=== PATIENT | female | born 2000 | race Caucasian/White ===

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

== ENCOUNTER 2018-11-05 22:15 | Emergency (ER) | payer OTHER ==
[2018-11-05 22:18] VITALS: BMI 25.7
[2018-11-06 00:21] LABS: EPI CELLS 0.4 /HPF (0-5/HPF); HYALINE CASTS 0 /lpf (0-8); PH,URINE 7.5 (5.0-8.0); URINE APPEARANCE CLEAR; URINE BACTERIA 245.6 /hpf (NEGATIVE); URINE BILIRUBIN NEGATIVE (NEGATIVE); URINE COLOR YELLOW; URINE GLUCOSE (UA) NEGATIVE (NEGATIVE); URINE KETONE NEGATIVE (NEGATIVE); URINE LEUK ESTERASE 3+ (NEGATIVE); URINE NITRITE NEGATIVE (NEGATIVE); URINE PROTEIN NEGATIVE (NEGATIVE); URINE RBC 4 /hpf (0-4); URINE WBC 42 /hpf (0-5)
[2018-11-06 00:50] LABS: HCG,QUALITATIVE URINE Negative
[2018-11-06] MEDS ORDERED: SODIUM CHLORIDE 0.9% 1000 ML INFUS.BAG IV ONE (01:08)
[2018-11-06] MEDS ORDERED: ACETAMINOPHEN 1000 MG/100 ML VIAL (NON FORMULARY) IVPB ONE (01:08)
--- NOTE | 2018-11-06 01:53 | PDOC ---
History of Present Illness - General Chief Complaint: Pain Stated Complaint: ABD/PAIN Time Seen by Provider: 11/05/18 23:49 History Source: Patient Exam Limitations: No Limitations - History of Present Illness Initial Comments: 11/06/18 01:48 18F with no PMH presents to the ER with complaints of abdominal pain. The patient states that she saw her PCP and had an ultrasound approximately 5 days ago which showed "a stomach cyst". She states that since she was diagnosed, she' s had lower abdominal pain. She admits to dysuria but denies vaginal discharge, fever, chills, nausea, vomiting, anorexia. She denies any other abdominal pain besides the burning pain when she urinates. Past History - Past Medical History Allergies/Adverse Reactions: Allergies Allergy/AdvReac Type Severity Reaction Status Date / Time No Known Allergies Allergy Verified 11/05/18 22:19 Home Medications: Ambulatory Orders Cephalexin Monohydrate [Keflex -] 500 mg PO BID #10 capsule 11/06/18 Methylprednisolone [Medrol Dose Chase] 4 mg PO ASDIR #21 tablet 11/06/18 COPD: No - Immunization History Immunization Up to Date: Yes - Suicide/Smoking/Psychosocial Hx Smoking History: Never smoked Have you smoked in the past 12 months: No Hx Alcohol Use: No Drug/Substance Use Hx: No Substance Use Type: None Review of Systems - Review of Systems Able to Perform ROS?: Yes Comments:: 11/06/18 01:51 GENERAL/CONSTITUTIONAL: No fever or chills. No weakness. HEAD, EYES, EARS, NOSE AND THROAT: No change in vision. No ear pain or discharge. No sore throat. CARDIOVASCULAR: No chest pain, palpitations, or lightheadedness. RESPIRATORY: No cough, wheezing, shortness of breath, or hemoptysis. GASTROINTESTINAL: + for lower abdominal pain. No nausea, vomiting, diarrhea, or constipation. GENITOURINARY: + for dysuria. No frequency, hematuria, or change in urination. MUSCULOSKELETAL: No joint or muscle swelling or pain. No neck or back pain. SKIN: No rash or lesions. NEUROLOGIC: No headache, numbness, tingling, focal weakness, loss of consciousness, or change in strength/sensation. Is the patient limited Wolof proficient: No *Physical Exam - Vital Signs Last Vital Signs Temp Pulse Resp BP Pulse Ox 98.2 F 70 18 133/82 100 11/05/18 22:17 11/05/18 22:17 11/05/18 22:17 11/05/18 22:17 11/05/18 22:17 - Physical Exam Comments: 11/06/18 01:52 GENERAL: Well developed, well nourished. Awake and alert. No acute distress. HEENT: Normocephalic, atraumatic. Hearing grossly normal. Moist mucous membranes. PERRLA, EOMI. No conjunctival pallor. Sclera are non-icteric. NECK: Supple. Full ROM. No JVD. CARDIOVASCULAR: Regular rate and rhythm. No murmurs, rubs, or gallops. PULMONARY: No evidence of respiratory distress. Lungs clear to auscultation bilaterally. No wheezing, rales or rhonchi. ABDOMINAL: Soft. TTP in suprapubic abdomen. Non-distended. No rebound or guarding. PELVIC: Normal external genitalia, no abnormal discharge, no CMT. Midline and R adnexal tenderness present. GENITOURINARY: No CVA tenderness bilaterally. MUSCULOSKELETAL: Normal range of motion at all joints. No bony deformities or tenderness. EXTREMITIES: No cyanosis. No clubbing. No edema. No calf tenderness or swelling. SKIN: Warm and dry. Normal capillary refill. No rashes. No jaundice. NEUROLOGICAL: Alert, awake, appropriate. Cranial nerves 2-12 grossly intact. Normal speech. Gait is normal without ataxia. PSYCHIATRIC: Cooperative. Good eye contact. Appropriate mood and affect. ED Treatment Course - LABORATORY CBC & Chemistry Diagram: 11/06/18 02:00 11/06/18 02:00 - ADDITIONAL ORDERS Additional order review: Laboratory Results 11/06/18 00:07 Urine Color Yellow Urine Appearance Clear Urine pH 7.5 Ur Specific [place] 1.007 L Urine Protein Negative Urine Glucose (UA) Negative Urine Ketones Negative Urine Blood 2+ H Urine Nitrite Negative Urine Bilirubin Negative Urine Urobilinogen 1.0 Ur Leukocyte Esterase 3+ H Urine WBC (Auto) 42 Urine RBC (Auto) 4 Urine Casts (Auto) 0 U Epithel Cells (Auto) 0.4 Urine Bacteria (Auto) 245.6 Urine HCG, Qual Negative - RADIOLOGY Radiology Studies Ordered: Category Date Time Status TRANSVAGINAL ULTRASOUND US [US] Stat Ultrasound 11/06/18 00:43 Taken Medical Decision Making - Medical Decision Making 11/06/18 01:53 18F with no PMH who presents with abdominal pain and complaints of a cyst. Pelvic exam notable for midline tenderness and R adnexal tenderness. US negative. UA shows UTI. Will send GC/Chlamydia swab from cervix. Pt well appearing otherwise. Will obtain labs and hydrate and reassess. 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 CBC shows WBC of 11. Will obtain CTAP to r/o appendicitis. 11/06/18 04:32 Pt states that she feels eye swelling after the CT. Mild periorbital edema noted w/o any wheezing or oropharynx involvement. Will give benadryl, pepcid, and steroids and move to monitored room. 11/06/18 04:49 CT IMPRESSION: Possible mild cystitis can be correlated with urinalysis. 1.4 cm involuting left ovarian cyst and small amount of pelvic free fluid. Will monitor patient for allergic reaction. 11/06/18 05:35 Swelling has resolved. Will d/c with abx and medrol dose pack and PCP f/u. *DC/Admit/Observation/Transfer Diagnosis at time of Disposition: Cystitis - Discharge Dispostion Disposition: HOME Condition at time of disposition: Stable Decision to Admit order: No - Prescriptions Prescriptions: Cephalexin Monohydrate [Keflex -] 500 mg PO BID #10 capsule Methylprednisolone [Medrol Dose Chase] 4 mg PO ASDIR #21 tablet - Referrals Referrals: Manisha Li [Primary Care Provider] - - Patient Instructions Printed Discharge Instructions: DI for General Allergic Reactions Additional Instructions: Your ER visit is not complete until your follow up with your primary care physician. Please follow up with your primary care physician in 1-2 days. Please return to the ER if you have any signs or symptoms of chest pain, shortness of breath, uncontrollable fever, chills, nausea, vomiting, numbness, tingling, or weakness in any part of your body, changes in vision, or slurred speech. Please take your medications as prescribed. Please return to the ER if symptoms persist, worsen, or new symptoms arise. - Post Discharge Activity
--- NOTE | 2018-11-06 02:03 | PDOC ---
Documentation entered by Waqar Haley SCRIBE, acting as scribe for Cordelia Paris DO. Cordelia Paris DO: This documentation has been prepared by the Sudha hamlin Elijah, SCRIBE, under my direction and personally reviewed by me in its entirety. I confirm that the documentation accurately reflects all work , treatment, procedures, and medical decision making performed by me. Attending Attestation - Resident Resident Name: Ramon Hutchinson - ED Attending Attestation I have performed the following: I have examined & evaluated the patient, The case was reviewed & discussed with the resident, I agree w/resident's findings & plan - HPI HPI: 11/06/18 01:52 Patient is a 18yo f with no reported significant PMH who presents to the ED with pelvic pain localized now localized to the right side. The patient also reports some dysuria. Denies Nausea, fever, vomiting and Vaginal Discharge Allergies: GRISEL PCP: Dr. Li 11/06/18 02:00 - Physicial Exam PE: 11/06/18 01:55 Agree with Resident's Exam - Medical Decision Making 11/06/18 02:01 18-year-old female with pelvic pain, right greater than left Urinalysis consistent with urinary tract infection Pelvic ultrasound shows no significant acute abnormalities Plan for reevaluation after IV fluids and IV Tylenol CT scan of clinically warranted
[2018-11-06 02:29] LABS: BASO % 0.4 % (0-2.0); HEMATOCRIT 38.4 % (32.4-45.2); HEMOGLOBIN 12.6 GM/dL (10.7-15.3); LYMPH % 24.1 % (8-40); MCH 28.5 pg (25.7-33.7); MCHC 32.7 g/dl (32.0-36.0); MEAN CELL VOLUME 87.2 fl (80-96); MEAN PLT VOLUME 8.7 fl (7.5-11.1); MONO % 7.5 % (3.8-10.2); PLATELET COUNT 261 K/MM3 (134-434); WHITE BLOOD COUNT 11.2 K/mm3 (4.0-10.0)
[2018-11-06 02:34] LABS: INR 1.09 (0.83-1.09); PROTHROMBIN TIME (PATIENT) 12.9 SEC (9.7-13.0)
[2018-11-06 02:50] LABS: BILIRUBIN,TOTAL 0.3 mg/dL (0.2-1); BLOOD UREA NITROGEN 6.9 mg/dL (7-18); CALCIUM 9.6 mg/dL (8.5-10.1); CREATININE 0.7 mg/dL (0.55-1.3); POTASSIUM 3.9 mmol/L (3.5-5.1); TOT PROT 7.7 g/dl (6.4-8.2)
[2018-11-06] MEDS ORDERED: diphenhydrAMINE HCL 25 MG CAPSULE (FP) PO ONE (04:31)
[2018-11-06] MEDS ORDERED: FAMOTIDINE 20 MG/50 ML IVPB 20 MG/50 ML MG IVPB ONE ×2 (04:31→04:46)
[2018-11-06] MEDS ORDERED: DEXAMETHASONE SOD PHOSPHATE 10 MG/1 ML VIAL IVPUSH ONE (04:32)
[2018-11-06] MEDS ORDERED: DEXAMETHASONE SOD PHOSPHATE 10 MG/1 ML VIAL ONE (04:34)
[2018-11-06] MEDS ORDERED: CEFTRIAXONE 1,000 MG in DEXTROSE 5%-WATER - 50 ML IVPB ONE (05:00)
[2018-11-06] MEDS ORDERED: CEFTRIAXONE 1 GM/50 ML BAG ONE (05:04)
[2018-11-06 05:53] VITALS: BP 110/67; PULSE 68; TEMP 98.4
== END 2018-11-06 06:05 | disposition home or self-care (01) ==
LOC: JER 22:15
PROC: 3E033GC Introduction of Other Therapeutic Substance into Peripheral Vein, Percutaneous Approach (ICD-10-PCS; principal; 2018-11-05)
PROC: 3E03329 Introduction of Other Anti-infective into Peripheral Vein, Percutaneous Approach (ICD-10-PCS; 2018-11-05)
PROC: 3E033GC Introduction of Other Therapeutic Substance into Peripheral Vein, Percutaneous Approach (ICD-10-PCS; 2018-11-05)
PROC: 3E0333Z Introduction of Anti-inflammatory into Peripheral Vein, Percutaneous Approach (ICD-10-PCS; 2018-11-05)
DX: N30.00 Acute cystitis without hematuria (principal); N83.202 Unspecified ovarian cyst, left side; T78.40XA Allergy, unspecified, initial encounter; X58.XXXA Exposure to other specified factors, initial encounter; Y93.89 Activity, other specified; Y92.238 Other place in hospital as the place of occurrence of the external cause; Y99.8 Other external cause status
CPT/HCPCS: 36415; 74177-TC; 76830-TC; 80053; 81003; 84703; 85025; 85610; 86850; 86900; 86901; 87086; 87186; 87491; 87591; 96365; 96367; 96375; 99281-25; J1100; J7030

== ENCOUNTER 2019-03-10 17:24 | Emergency (ER) | payer OTHER ==
[2019-03-10] MEDS ORDERED: KETOROLAC TROMETHAMINE 30 MG/1 ML VIAL IVPUSH ONE (17:35)
[2019-03-10] MEDS ORDERED: METOCLOPRAMIDE HCL INJECTION 10 MG/2 ML VIAL IVPUSH ONE (17:35)
--- NOTE | 2019-03-10 17:35 | PDOC ---
Rapid Medical Evaluation Time Seen by Provider: 03/10/19 17:27 Medical Evaluation: Allergies Allergy/AdvReac Type Severity Reaction Status Date / Time No Known Allergies Allergy Verified 11/05/18 22:19 03/10/19 17:33 CC: intermittent headache x2 weeks. Bitemporal and waxing and waning. PE: No focal findings Orders: upt, [email or web address] Patient will proceed to ED for further evaluation. Discharge Disposition - Diagnosis Headache - Referrals Referrals: Manisha Li [Primary Care Provider] - - Patient Instructions - Post Discharge Activity
[2019-03-10 17:39] VITALS: BP 119/61; PULSE 72; TEMP 98.5; BMI 25.1
[2019-03-10] MEDS ORDERED: METOCLOPRAMIDE HCL INJECTION 10 MG/2 ML VIAL ONE (17:57)
[2019-03-10] MEDS ORDERED: KETOROLAC TROMETHAMINE 30 MG/1 ML VIAL ONE (17:58)
[2019-03-10] MEDS ORDERED: KETOROLAC TROMETHAMINE 30 MG/1 ML VIAL IM ONE (18:02)
[2019-03-10] MEDS ORDERED: METOCLOPRAMIDE HCL 10 MG TABLET (FP) PO ONE ×2 (18:02→18:04)
--- NOTE | 2019-03-10 18:07 | PDOC ---
History of Present Illness - General Chief Complaint: Headache Stated Complaint: HEADACHE Time Seen by Provider: 03/10/19 17:27 History Source: Patient Exam Limitations: No Limitations - History of Present Illness Initial Comments: 03/10/19 18:02 18 year old female with no significant medical or surgical history presents with reports of headache x 2 weeks. States headache started when she started to take oral control pills. Patient states she has since stop taking it but still gets headaches intermittently, that is only temporarily treated by acetaminophen. Denies nausea, vomiting, blurred vision or photophobia. Timing/Duration: reports: other (2 weeks) Severity: Yes: moderate Associated Symptoms: denies: confusion, vision changes Past History - Travel Traveled outside of the country in the last 30 days: No Close contact w/someone who was outside of country & ill: No - Past Medical History Allergies/Adverse Reactions: Allergies Allergy/AdvReac Type Severity Reaction Status Date / Time No Known Allergies Allergy Verified 03/10/19 17:34 Home Medications: Ambulatory Orders NK [No Known Home Medication] 03/10/19 COPD: No - Immunization History Immunization Up to Date: Yes - Psycho Social/Smoking Cessation Hx Smoking History: Never smoked Have you smoked in the past 12 months: No Hx Alcohol Use: No Drug/Substance Use Hx: No Substance Use Type: None Neuro Specific PMHX - Complaint Specific PMHX Glaucoma: No Herniated Disk: No Migraine: No Multiple Sclerosis: No Neuropathy: No TIA: No Review of Systems - Review of Systems Able to Perform ROS?: Yes Is the patient limited Upper Sorbian proficient: No Constitutional: No: Chills, Fever, Weakness HEENTM: No: Ear Discharge, Nose Pain, Nose Congestion, Throat Pain, Mouth Swelling Respiratory: No: Cough, Orthopnea, Shortness of Breath, Productive cough Cardiac (ROS): No: Chest Pain, Lightheadedness, Palpitations ABD/GI: No: Blood Streaked Bowels, Poor Appetite, Poor Fluid Intake, Rectal Bleeding, Vomiting, Indigestion, Abdominal cramping : No: Burning, Incontinence, Pain, Urgency Musculoskeletal: No: Joint Pain, Muscle Weakness, Neck Pain Integumentary: No: See HPI, Bruising, Erythema, Flushing, Other Neurological: Yes: Headache. No: Numbness, Paresthesia, Tingling, Tremors, Weakness Psychiatric: No: Stressors, Sleep Pattern Change, Mood Swings, Change in Appetite Endocrine: No: Intolerance to Heat, Unexplained Weight Gain Hematologic/Lymphatic: No: Blood Clots, Bleeding Diathesis *Physical Exam - Vital Signs Last Vital Signs Temp Pulse Resp BP Pulse Ox 98.5 F 72 18 119/61 100 03/10/19 17:34 03/10/19 17:34 03/10/19 17:34 03/10/19 17:34 03/10/19 17:34 - Physical Exam General Appearance: Yes: Nourished, Appropriately Dressed HEENT: positive: TMs Normal, Pharynx Normal Neck: positive: Supple. negative: Lymphadenopathy (R), Lymphadenopathy (L) Respiratory/Chest: positive: Lungs Clear Cardiovascular: positive: Regular Rhythm, Regular Rate Extremity: positive: Normal Inspection, Normal Range of Motion Integumentary: negative: Erythema, Hives Neurologic: positive: Fully Oriented, Alert, Normal Mood/Affect, Normal Response. negative: Numbness Medical Decision Making - Medical Decision Making 03/10/19 18:06 18 year old female with no significant medical or surgical history presents with reports of headache x 2 weeks. States headache started when she started to take oral control pills. Patient states she has since stop taking it but still gets headaches intermittently, that is only temporarily treated by acetaminophen. Denies nausea, vomiting, blurred vision or photophobia. #headache -toradol and reglan given -encouraged hydration 03/10/19 18:29 headache is better d/c home with analgesia and referral to pmd for neurology referral Discharge - Discharge Information Problems reviewed: Yes Clinical Impression/Diagnosis: Headache Qualifiers: Headache type: unspecified Headache chronicity pattern: acute headache Intractability: not intractable Qualified Code(s): R51 - Headache Condition: Good Disposition: HOME - Admission No - Follow up/Referral Referrals: Manisha Li [Primary Care Provider] - (call for follow up appointment ) - Patient Discharge Instructions Patient Printed Discharge Instructions: DI for Headache Additional Instructions: -Please drink plenty fluids -May take acetaminophen or ibuprofen for pain -Call primary physician for follow appointment and referral to neurologist - Post Discharge Activity Work/Back to School Note: Back to Work
== END 2019-03-10 18:38 | disposition home or self-care (01) ==
LOC: JERFT 17:24
PROC: 3E0233Z Introduction of Anti-inflammatory into Muscle, Percutaneous Approach (ICD-10-PCS; principal; 2019-03-10)
DX: R51 Headache (principal)
CPT/HCPCS: 84703; 96372; 99282-25

== ENCOUNTER 2019-05-28 09:27 | Emergency (ER) | payer OTHER ==
[2019-05-28 10:12] VITALS: BP 117/73; PULSE 69; TEMP 98; BMI 25.1
[2019-05-28] MEDS ORDERED: IBUPROFEN 400 MG TABLET (FP) PO ONE ×2 (11:16→11:17)
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
== END 2019-05-28 11:30 | disposition home or self-care (01) ==
LOC: JERFT 09:27
DX: H02.89 Other specified disorders of eyelid (principal)
CPT/HCPCS: 99281-25

== ENCOUNTER 2020-03-23 14:20 | Inpatient (IN) | payer OTHER ==
[2020-03-23] MEDS ORDERED: DINOPROSTONE 10 MG VAGINAL SUPPOSITORY VG ONE (15:00)
[2020-03-23 15:45] VITALS: BMI 31.1
[2020-03-23 16:19] LABS: BASO % 0.5 % (0-2.0); EOS % 0.6 % (0-4.5); HEMATOCRIT 37.7 % (32.4-45.2); HEMOGLOBIN 12.9 GM/dL (10.7-15.3); LYMPH % 16.8 % (8-40); MCH 30.3 pg (25.7-33.7); MCHC 34.1 g/dl (32.0-36.0); MEAN CELL VOLUME 88.9 fl (80-96); MEAN PLT VOLUME 8.8 fl (7.5-11.1); MONO % 4.8 % (3.8-10.2); NEUT % 77.3 % (42.8-82.8); PLATELET COUNT 215 K/MM3 (134-434); RBC 4.24 M/mm3 (3.60-5.2); RDW 13.4 % (11.6-15.6); WHITE BLOOD COUNT 10.7 K/mm3 (4.0-10.0)
[2020-03-23 16:33] LABS: INR 0.97 (0.83-1.09); PROTHROMBIN TIME (PATIENT) 11.8 SEC (9.7-13.0)
[2020-03-23 16:36] LABS: ACTIVATED PTT 27.9 SECONDS (25.2-36.5)
[2020-03-23 16:43] LABS: CALCIUM 9.5 mg/dL (8.5-10.1)
[2020-03-23 16:47] LABS: CREATININE 0.6 mg/dL (0.55-1.3)
[2020-03-23 17:40] LABS: HIV INTERPRETATION NEGATIVE (NEGATIVE)
[2020-03-23] MEDS ORDERED: BUTORPHANOL TARTRATE 1 MG/ML VIAL IVPB PRN (18:05)
[2020-03-23] MEDS ORDERED: ELECTROLYTE-148 SOLN 1,000 ML IV SCH (18:15)
[2020-03-23] MEDS ORDERED: OXYTOCIN 30 UNITS in 0.9% NS 30 UNIT/500 ML INFUS.BAG IVPB SCH (18:15)
[2020-03-24] MEDS ORDERED: OXYTOCIN 20 UNITS in 0.9% NS 20 UNIT/1,000 ML INFUS.BAG IV ONE ×2 (04:32→06:43)
[2020-03-24] MEDS ORDERED: PROPOFOL 20 ML ONE (04:42)
[2020-03-24] MEDS ORDERED: morphine SULFATE/PF 0.5 MG/ML (2cc Syringe - QUVA) ONE (04:42)
[2020-03-24] MEDS ORDERED: SUCCINYLCHOLINE CHLORIDE 200 MG/10 ML SYRINGE ONE (04:42)
[2020-03-24] MEDS ORDERED: PHENYLEPHRINE HCL 10 MG/1 ML SINGLE DOSE VIAL ONE (04:42)
[2020-03-24] MEDS ORDERED: ceFAZolin SODIUM 1 GM VIAL ONE (04:42)
[2020-03-24] MEDS ORDERED: SODIUM CHLORIDE 0.9% P/F 10 ML VIAL IJ ONE (04:44)
[2020-03-24] MEDS ORDERED: OXYTOCIN 10 UNITS/ML VIAL ONE (05:08)
[2020-03-24] MEDS ORDERED: KETOROLAC TROMETHAMINE 30 MG/1 ML VIAL ONE (05:20)
[2020-03-24] MEDS ORDERED: DEXAMETHASONE SOD PHOSPHATE 4 MG/1 ML VIAL ONE (05:20)
[2020-03-24] MEDS ORDERED: ACETAMINOPHEN 325 MG TABLET (FP) PO PRN (06:12)
[2020-03-24] MEDS ORDERED: ONDANSETRON 4 MG/2 ML VIAL IVPUSH PRN (06:12)
[2020-03-24] MEDS ORDERED: IBUPROFEN 600 MG TABLET (FP) PO PRN (06:12)
[2020-03-24] MEDS ORDERED: morphine SULFATE/PF 0.5 MG/ML (2cc Syringe - QUVA) EP ONE (06:12)
[2020-03-24] MEDS ORDERED: METHYLERGONOVINE MALEATE 0.2 MG/1 ML AMP IM PRN (06:23)
[2020-03-24] MEDS ORDERED: SIMETHICONE 80 MG TAB.CHEW (FP) PO PRN (06:23)
[2020-03-24] MEDS ORDERED: BENZOCAINE 20% 57 GM BOTTLE TP PRN (06:23)
[2020-03-24] MEDS ORDERED: diphenhydrAMINE HCL 25 MG CAPSULE (FP) PO PRN (06:23)
[2020-03-24] MEDS ORDERED: BENZOCAINE 28 GM HEMORRHOIDAL OINTMENT PR PRN (06:23)
[2020-03-24] MEDS ORDERED: WITCH HAZEL 50% (TUCKS) 40 PAD/JAR PAD TP PRN (06:23)
[2020-03-24] MEDS ORDERED: CITRIC ACID/SODIUM CITRATE 30 ML UNIT-DOSE CUP PO ONE (06:23)
[2020-03-24 06:30] LABS: CORD BASE EXCESS -2.8 mmol/L (0-2); CORD HCO3 23.6 mmHg (20-29); CORD PCO2 46.4 mmHg (30-78); CORD pH 7.324 (7.14-7.44)
[2020-03-24 06:33] LABS: CORD HCO3 25.7 mmHg (20-29); CORD PCO2 62.3 mmHg (30-78); CORD pH 7.233 (7.14-7.44)
[2020-03-24] MEDS: OXYTOCIN 20 UNITS in 0.9% NS 20 UNIT/1,000 ML INFUS.BAG IV SCH ×2 (06:49→14:59)
[2020-03-25] MEDS: IBUPROFEN 800 MG/8 ML IJ IVPB PRN ×2 (00:05→09:41)
[2020-03-25] MEDS ORDERED: HYDROmorphone HCL 2 MG TABLET PO PRN (06:23)
[2020-03-25] MEDS ORDERED: oxyCODONE HCL 5 MG TABLET PO PRN (06:23)
[2020-03-25] MEDS ORDERED: BISACODYL 10 MG SUPP.RECT PR PRN (06:24)
[2020-03-25 08:26] LABS: HEMATOCRIT 31.1 % (32.4-45.2); HEMOGLOBIN 10.4 GM/dL (10.7-15.3); MCH 29.8 pg (25.7-33.7); MCHC 33.4 g/dl (32.0-36.0); MEAN CELL VOLUME 89.3 fl (80-96); MEAN PLT VOLUME 8.5 fl (7.5-11.1); PLATELET COUNT 172 K/MM3 (134-434); RBC 3.48 M/mm3 (3.60-5.2); RDW 13.3 % (11.6-15.6); WHITE BLOOD COUNT 9.9 K/mm3 (4.0-10.0)
[2020-03-25] MEDS: oxyCODONE HCL 5 MG TABLET PO PRN ×2 (17:24→22:10)
[2020-03-25] MEDS: IBUPROFEN 600 MG TABLET (FP) PO PRN ×2 (17:25→22:10)
[2020-03-25] MEDS: OXYTOCIN 20 UNITS in 0.9% NS 20 UNIT/1,000 ML INFUS.BAG IV SCH (22:09)
[2020-03-26] MEDS: oxyCODONE HCL 5 MG TABLET PO PRN ×2 (08:15→16:28)
[2020-03-26] MEDS: IBUPROFEN 600 MG TABLET (FP) PO PRN ×2 (08:16→16:28)
[2020-03-26] MEDS ORDERED: SENNOSIDES/DOCUSATE COMBO (SENNA PLUS) TABLET (UD) PO PRN (22:00)
[2020-03-27 06:52] LABS: HEMATOCRIT 30.8 % (32.4-45.2); HEMOGLOBIN 10.2 GM/dL (10.7-15.3); MCH 29.9 pg (25.7-33.7); MCHC 33.3 g/dl (32.0-36.0); MEAN CELL VOLUME 89.9 fl (80-96); MEAN PLT VOLUME 8.3 fl (7.5-11.1); PLATELET COUNT 167 K/MM3 (134-434); RBC 3.42 M/mm3 (3.60-5.2); RDW 13.4 % (11.6-15.6)
[2020-03-27] MEDS: IBUPROFEN 600 MG TABLET (FP) PO PRN (08:33)
[2020-03-27 10:12] VITALS: BP 136/83; PULSE 85; TEMP 97.3
== END 2020-03-27 12:45 | disposition home or self-care (01) | DRG 540 ==
LOC: JLDR 14:20 → J3W 03-24 07:30
PROVIDERS: ADMIT Obstetrics & Gynecology; ATTEND Obstetrics & Gynecology
PROC: 3E033VJ Introduction of Other Hormone into Peripheral Vein, Percutaneous Approach (ICD-10-PCS; principal; 2020-03-23)
PROC: 10D00Z1 Extraction of Products of Conception, Low, Open Approach (ICD-10-PCS; 2020-03-24)
DX: O76 Abnormality in fetal heart rate and rhythm complicating labor and delivery (principal); Z3A.39 39 weeks gestation of pregnancy; Z37.0 Single live birth
CPT/HCPCS: 36415; 36600; 80048; 82803; 85025; 85027; 85610; 85730; 86780; 86850; 86900; 86901; 87389; 88307-TC; C9803; U0003

== ENCOUNTER 2024-05-24 10:09 | Emergency (ER) | payer OTHER ==
[2024-05-24 10:19] VITALS: BP 122/53; PULSE 78; RESP 20; TEMP 98; BMI 29.2
[2024-05-24] MEDS ORDERED: IBUPROFEN 600 MG TABLET (FP) PO ONE (10:59)
[2024-05-24] MEDS ORDERED: LIDOCAINE 4% PATCH TP ONE (10:59)
[2024-05-24] MEDS: LIDOCAINE 4% PATCH TP ONE (11:05)
[2024-05-24] MEDS: IBUPROFEN 600 MG TABLET (FP) PO ONE (11:06)
[2024-05-24 11:13] LABS: EPI CELLS 11 /uL (0-25.1); HYALINE CASTS 0 /uL (0-3.1); URINE APPEARANCE CLEAR; URINE BACTERIA 409 /uL (0-1359); URINE BILIRUBIN NEGATIVE (NEGATIVE); URINE COLOR YELLOW; URINE GLUCOSE (UA) NEGATIVE (NEGATIVE); URINE KETONE NEGATIVE (NEGATIVE); URINE LEUK ESTERASE TRACE (NEGATIVE); URINE NITRITE NEGATIVE (NEGATIVE); URINE PROTEIN NEGATIVE (NEGATIVE); URINE RBC 15 /uL (0-23.9); URINE UROBILINOGEN 0.2 mg/dL (0.2-1.0); URINE WBC 28 /uL (0-25.8)
[2024-05-24 13:01] LABS: HIV INTERPRETATION NEGATIVE (NEGATIVE)
[2024-05-24] MEDS ORDERED: LIDOCAINE PATCH REMOVAL MC SCH (22:00)
== END 2024-05-24 13:37 | disposition home or self-care (01) ==
LOC: JERFT 10:09
DX: M54.50 Low back pain, unspecified (principal)
CPT/HCPCS: 36415; 72100-TC-FY; 81003; 84703; 86803; 87077; 87086; 87389; 99284-25

== ENCOUNTER 2024-06-27 09:27 | Emergency (ER) | payer OTHER ==
[2024-06-27 09:34] VITALS: BP 128/71; PULSE 107; RESP 18; TEMP 99.1; BMI 32.3
[2024-06-27] MEDS ORDERED: ACETAMINOPHEN 500 MG TABLET (FP) ONE (10:03)
[2024-06-27] MEDS: ACETAMINOPHEN 500 MG TABLET (FP) PO ONE (10:15)
[2024-06-27 12:14] LABS: HIV INTERPRETATION NEGATIVE (NEGATIVE)
== END 2024-06-27 11:23 | disposition home or self-care (01) ==
LOC: JERFT 09:27
DX: J10.1 Influenza due to other identified influenza virus with other respiratory manifestations (principal); M79.10 Myalgia, unspecified site; R68.83 Chills (without fever); R68.89 Other general symptoms and signs; R05.9 Cough, unspecified; Z20.822 Contact with and (suspected) exposure to COVID-19
CPT/HCPCS: 0241U-QW; 36415; 86803; 87389; 99283-25